=== PATIENT | female | born 1940 | race Caucasian/White ===

== ENCOUNTER 2019-01-27 13:00 | Outpatient (CLI) | payer OTHER | END 2019-01-27 14:00 | disposition home or self-care (01) | LOC: D.MAMMO 13:00 | PROVIDERS: ATTEND Family Medicine | DX: Z12.31 Encounter for screening mammogram for malignant neoplasm of breast (principal) ==

== ENCOUNTER 2019-10-27 20:01 | Emergency (ER) | payer OTHER ==
[~2019-10-27] VITALS: Ht 167.6 cm; Wt 61.4 kg
[2019-10-27 20:27] VITALS: Ht 167.6 cm; Wt 61.4 kg
[2019-10-27] MEDS ORDERED: HYDROCHLOROTHIA25 MG PO (20:28)
[2019-10-27] MEDS ORDERED: ASPIRIN81 MG PO (20:29)
[2019-10-27] MEDS ORDERED: ZOCOR20 MG PO (20:29)
[2019-10-27] MEDS ORDERED: KLOR-CON 1010 MEQ PO (20:29)
[2019-10-27] MEDS ORDERED: ALTACE10 MG (20:29)
[2019-10-27] MEDS ORDERED: NORVASC5 MG PO (20:29)
[2019-10-27] MEDS ORDERED: MUPIROCIN22 GM TOPICAL (21:15)
== END 2019-10-27 21:45 | disposition home or self-care (01) ==
LOC: D.ER 20:01
DX: S81.812A Laceration without foreign body, left lower leg, initial encounter (principal); X58.XXXA Exposure to other specified factors, initial encounter; I10 Essential (primary) hypertension

== ENCOUNTER 2020-06-20 14:30 | Outpatient (CLI) | payer OTHER ==
[2019-10-27 20:27] VITALS: BMI 21.8
[~2020-06-20 14:30] MED LIST: ALTACE10 MG; ASPIRIN81 MG PO; HYDROCHLOROTHIA25 MG PO; KLOR-CON 1010 MEQ PO; MUPIROCIN22 GM TOPICAL; NORVASC5 MG PO; ZOCOR20 MG PO
== END 2020-06-20 23:59 | disposition home or self-care (01) ==
LOC: D.MAMMO 14:30
PROVIDERS: ATTEND Nurse Practitioner
DX: Z12.31 Encounter for screening mammogram for malignant neoplasm of breast (principal)